=== PATIENT | male | born 1980 | race Caucasian/White ===

== ENCOUNTER 2023-11-21 12:27 | Emergency (ER) | payer BC, MEDICAID ==
[2023-11-21 12:41] VITALS: BP 132/82; PULSE 69
[2023-11-21] MEDS ORDERED: Diphtheria,Pertussis(Acell),Tetanus Vaccine 0.5 ML Syringe IM ONE (12:54)
[2023-11-21] MEDS ORDERED: Lidocaine 1% with EPINEPHrine 1:100,000 20 ML MDV INFILT ONE (12:54)
[2023-11-21] MEDS ORDERED: Bacitracin Oint 1 GM U/D Packet TOP ONE (12:55)
== END 2023-11-21 13:48 | disposition home or self-care (01) ==
LOC: DL.ED 12:27
DX: S51.011A Laceration without foreign body of right elbow, initial encounter (principal); Z23 Encounter for immunization; W26.8XXA Contact with other sharp object(s), not elsewhere classified, initial encounter
CPT/HCPCS: 12001; 90471; 90715; 99282-25; 99283; A9270-GY; J3490